=== PATIENT | female | born 1990 ===

== ENCOUNTER 2017-01-06 00:26 | Inpatient (IN) | payer MEDICAID ==
[~2017-01-06] VITALS: Ht 160 cm; Wt 66.8 kg
[2017-01-06] VITALS (26 sets, daily range): BP systolic 86–120; BP diastolic 43–75; PULSE 59–99; TEMP 98–98.4
[~2017-01-06 00:26] MED LIST: MOTRIN 600600 MG/TAB PO; PERCOCET 325 MG1 TA2 PO; PRENATAL1 TA2 PO; SYNTHROID0.137 MG PO
[2017-01-06] MEDS ORDERED: SYNTHROID 0.0.025 MG PO (00:45)
[2017-01-06] MEDS ORDERED: PRENATAL1 TA7 PO (00:46)
[2017-01-06] MEDS ORDERED: ZANTAC 150MG T150 MG PO (00:46)
[2017-01-06] MEDS ORDERED: IRON325 M2 PO (00:46)
[2017-01-06 03:55] LABS: BASO # 0.1 (0.0-0.2); BASO % 0.4 % (0.0-2.0); EOS # 0.1 (0.0-0.7); EOS % 0.7 % (0-4.0); GRAN # 9.7 (1.4-6.5); GRAN % 74.1 % (42.2-75.2); HEMATOCRIT 37.6 % (37.0-47.0); HEMOGLOBIN 13.2 g/dl (12.5-16.0); MEAN CELL VOLUME 85 fl (80.0-100.0); MEAN CORPUSCULAR HEMOGLOBIN 30 pg (27.0-31.0); MEAN CORPUSCULAR HGB CONC 35 g/dl (33.0-37.0); MEAN PLATELET VOLUME 10.1 fl (7.4-10.4); MONO # 1.2 (0.1-0.6); PLATELET COUNT 195 K/mm3 (130-400); RED BLOOD COUNT 4.42 M/mm3 (4.10-5.30); REDCELL DISTRIBUTION WIDTH-CV 13.7 % (11.5-14.5); WHITE BLOOD COUNT 13.1 K/mm3 (4.8-10.8)
[2017-01-07 07:36] VITALS: BP 100/54; PULSE 62; TEMP 98.1
[2017-01-07] MEDS ORDERED: PERCOCET 325 MG1 TA2 PO (08:07)
[2017-01-07] MEDS ORDERED: IBU600 MG PO (08:07)
[2017-01-07] MEDS ORDERED: SYNTHROID0.1 MG/TAB PO (08:09)
[2017-01-07] MEDS ORDERED: SYNTHROID0.125 MG/T PO (08:09)
[2017-01-07 09:10] LABS: HEMATOCRIT 31.1 % (37.0-47.0); HEMOGLOBIN 10.5 g/dl (12.5-16.0)
== END 2017-01-07 12:36 | disposition home or self-care (01) | DRG 775 ==
LOC: LDRO 00:26 → LDR 02:55 → OB 02:55
PROVIDERS: Obstetrics & Gynecology
PROC: 10E0XZZ Delivery of Products of Conception, External Approach (ICD-10-PCS; principal; 2017-01-06)
PROC: 0KQM0ZZ Repair Perineum Muscle, Open Approach (ICD-10-PCS; 2017-01-06)
DX: O99.284 Endocrine, nutritional and metabolic diseases complicating childbirth (principal); E03.9 Hypothyroidism, unspecified; O34.211 Maternal care for low transverse scar from previous cesarean delivery; N85.8 Other specified noninflammatory disorders of uterus; O77.0 Labor and delivery complicated by meconium in amniotic fluid; O70.1 Second degree perineal laceration during delivery; Z3A.39 39 weeks gestation of pregnancy; Z37.0 Single live birth
CPT/HCPCS: J2590; J7120